=== PATIENT | female | born 1980 | race Caucasian/White ===

== ENCOUNTER 2017-10-17 10:27 | Emergency (ER) | payer OTHER ==
[2017-10-17 10:32] VITALS: RESP 18
--- NOTE | 2017-10-17 10:50 | CPEKG ---
Heart Rate: 106 RR Interval: 566 P-R Interval: 120 QRSD Interval: 110 QT Interval: 352 QTC Interval: 468 P Poteet: 71 QRS Poteet: 74 T Wave Poteet: 39 EKG Severity - ABNORMAL ECG - EKG Impression: SINUS TACHYCARDIA EKG Impression: INCOMPLETE RIGHT BUNDLE BRANCH BLOCK Electronically Signed By: Odell Braga 17-Oct-2017 14:14:20
[2017-10-17] MEDS ORDERED: NS 1,000 ML IV ONE (10:51)
[2017-10-17] MEDS ORDERED: ASPIRIN 81 MG CHEWABLE TAB PO ONE (10:52)
--- NOTE | 2017-10-17 10:52 | EDPHY ---
H & P Stated Complaint: Chest pain, nausea since . Time Seen by Provider: 10/17/17 10:37 HPI/ROS: Chief Complaint: Chest pain, nausea HPI: 37-year-old woman has been having intermittent chest pain since yesterday. She has also had some associated nausea and general fatigue. No fevers or chills. No cough. No nausea or vomiting. No body aches. No leg pain or swelling. Last menstrual period she is not recall because she has a Mirena in place. At worst the pain is a 5 on 10. Now is a 3 on 10. There are no aggravating or alleviating factors. She does state that her mother of a heart attack in her early 40s. ROS: 10 point Review of Systems is negative except as noted in the HPI. PMH: Denies Social History: No smoking, occasional alcohol, no recreational drug use Family History: Mother of a heart attack in her 40s Physical Exam: Gen: Awake, Alert, No Distress HEENT: Nose: no rhinorrhea Eyes: PERRLA, EOMI Mouth: Moist mucosa Neck: Supple, no JVD Chest: nontender, lungs clear to auscultation Heart: S1, S2 normal, no murmur Abd: Soft, non-tender, no guarding Back: no CVA tenderness, no midline tenderness Ext: no edema, non-tender Skin: no rash Neuro: CN II-XII intact, Sensation grossly intact, Strength 5/5 in bilateral upper and lower extremities - Personal History LMP (Females 10-55): IUD In Place Current Tetanus/Diphtheria Vaccine: Yes Current Tetanus Diphtheria and Acellular Pertussis (TDAP): Yes - Medical/Surgical History Hx Asthma: No Hx Chronic Respiratory Disease: No Hx Diabetes: No Hx Cardiac Disease: No Hx Renal Disease: No Hx Cirrhosis: No Hx Alcoholism: No Hx HIV/AIDS: No Hx Splenectomy or Spleen Trauma: No Other PMH: PMH: denies - Social History Smoking Status: Never smoked Constitutional: Initial Vital Signs Temperature (C) 36.8 C 10/17/17 10:30 Heart Rate 132 H 10/17/17 10:30 Respiratory Rate 18 10/17/17 10:30 Blood Pressure 144/85 H 10/17/17 10:30 O2 Sat (%) 100 10/17/17 10:30 O2 Delivery Mode Room Air Allergies/Adverse Reactions: No Known Allergies Allergy (Unverified 10/17/17 10:32) Home Medications: Medication Instructions Recorded NK [No Known Home Meds] 10/17/17 Medical Decision Making - Diagnostics EKG Interpretation: ECG time 10:47 a.m., sinus tachycardia with a rate of 106, incomplete right bundle branch block, no acute ST or T-wave changes. Imaging Results: Imaging Impressions Chest X-Ray 10/17/17 11:28 Impression: Clear lungs. No acute cardiopulmonary disease. Imaging: I viewed and interpreted images myself ED Course/Re-evaluation: 37-year-old woman presenting with atypical chest pain. ECG is normal. Chest x- ray is negative. Troponin is normal. She does have risk factors for mother having coronary disease. Pain is been present for over 6 hr. Plan will be for discharge with referral for outpatient follow-up with Cardiology for further risk stratification. - Data Points Laboratory Results: Laboratory Results 10/17/17 10:47 10/17/17 10:47 10/17/17 10/17/17 10/17/17 10:47 10:47 10:47 WBC 8.26 10^3/uL 10^3/uL (3.80-9.50) RBC 4.84 10^6/uL 10^6/uL (4.18-5.33) Hgb 15.1 g/dL g/dL (12.6-16.3) Hct 43.2 % % (38.0-47.0) MCV 89.3 fL fL (81.5-99.8) MCH 31.2 pg pg (27.9-34.1) MCHC 35.0 g/dL g/dL (32.4-36.7) RDW 12.4 % % (11.5-15.2) Plt Count 257 10^3/uL 10^3/uL (150-400) MPV 11.3 fL fL (8.7-11.7) Neut % (Auto) 60.2 % % (39.3-74.2) Lymph % (Auto) 28.3 % % (15.0-45.0) [place] % (Auto) 10.5 % % (4.5-13.0) Eos % (Auto) 0.2 % L % (0.6-7.6) Baso % (Auto) 0.6 % % (0.3-1.7) Nucleat RBC Rel Count 0.0 % % (0.0-0.2) Absolute Neuts (auto) 4.96 10^3/uL 10^3/uL (1.70-6.50) Absolute Lymphs (auto) 2.34 10^3/uL 10^3/uL (1.00-3.00) Absolute Monos (auto) 0.87 10^3/uL H 10^3/uL (0.30-0.80) Absolute Eos (auto) 0.02 10^3/uL L 10^3/uL (0.03-0.40) Absolute Basos (auto) 0.05 10^3/uL 10^3/uL (0.02-0.10) Absolute Nucleated RBC 0.00 10^3/uL 10^3/uL (0-0.01) Immature Gran % 0.2 % % (0.0-1.1) Immature Gran # 0.02 10^3/uL 10^3/uL (0.00-0.10) Sodium 143 mEq/L mEq/L (135-145) Potassium 3.9 mEq/L mEq/L (3.5-5.2) Chloride 107 mEq/L mEq/L (97-110) Carbon Dioxide 20 mEq/l L mEq/l (22-31) Anion Gap 16 mEq/L mEq/L (8-16) BUN 10 mg/dL mg/dL (7-23) Creatinine 0.7 mg/dL mg/dL (0.6-1.0) Estimated GFR > 60 Glucose 92 mg/dL mg/dL (70-100) Calcium 9.9 mg/dL mg/dL (8.5-10.4) Troponin I < 0.012 ng/mL ng/mL (0.000-0.034) Beta HCG, Qual NEGATIVE Medications Given: Discontinued Medications Aspirin (Aspirin) 324 mg PO EDNOW ONE Stop: 10/17/17 10:53 Last Admin: 10/17/17 11:00 Dose: 324 mg Sodium Chloride (Ns) 1,000 mls @ 0 mls/hr IV ONCE ONE; Wide Open PRN Reason: Protocol Stop: 10/17/17 10:52 Last Admin: 10/17/17 10:59 Dose: 1,000 mls Departure - Departure Disposition: Home, Routine, Self-Care Clinical Impression: Chest pain Condition: Good Instructions: Chest Pain (ED) Additional Instructions: Alternate acetaminophen (1000 mg) with ibuprofen (400 mg) every 4 hours as needed for pain. Follow up with Cardiology in 2-3 days for further evaluation. Return to the emergency department for increasing chest pain, shortness of breath, fainting, fevers, chills, or any other concerns. Referrals: NAIDA SUAREZ [Other] - As per Instructions Braxton Vasquez MD [Medical Doctor] - As per Instructions
[2017-10-17 10:59] LABS: PLATELET COUNT 257 10^3/uL (150-400)
[2017-10-17 12:19] VITALS: BP 124/78; PULSE 89; TEMP 97.2; O2SAT 98
== END 2017-10-17 12:27 | disposition home or self-care (01) ==
DX: R07.9 Chest pain, unspecified (principal); E86.9 Volume depletion, unspecified